=== PATIENT | female | born 1980 | race Two or more races ===

== ENCOUNTER 2021-01-26 17:20 | Inpatient (IN) | payer OTHER ==
[2021-01-26] MEDS ORDERED: ACETAMINOPHEN 1000 MG/100 ML VIAL (NON FORMULARY) IVPB ONE (18:17)
[2021-01-26] MEDS ORDERED: SODIUM CHLORIDE 1,000 ML IV STA (18:17)
[2021-01-26] MEDS ORDERED: ONDANSETRON *ODT* 4 MG TABLET SL ONE (18:17)
[2021-01-26] MEDS ORDERED: ONDANSETRON *ODT* 4 MG TABLET ONE (18:33)
[2021-01-26] MEDS ORDERED: ACETAMINOPHEN INJECTION 100 ML IVPB ONE (18:34)
[2021-01-26 19:19] LABS: BASO % 0.5 % (0-2.0); EOS % 2.4 % (0-4.5); HEMATOCRIT 38.3 % (32.4-45.2); LYMPH % 19.2 % (8-40); MCH 33.1 pg (25.7-33.7); MEAN CELL VOLUME 97.2 fl (80-96); MEAN PLT VOLUME 8.9 fl (7.5-11.1); MONO % 8.1 % (3.8-10.2); NEUT % 69.8 % (42.8-82.8); PLATELET COUNT 236 K/MM3 (134-434); RBC 3.93 M/mm3 (3.60-5.2); RDW 13.2 % (11.6-15.6)
[2021-01-26 19:29] LABS: INR 1.62 (0.83-1.09); PROTHROMBIN TIME (PATIENT) 19.3 SEC (9.7-13.0)
[2021-01-26 19:34] LABS: CALCIUM 8.4 mg/dL (8.5-10.1)
[2021-01-26 19:35] LABS: ALBUMIN 3.6 g/dl (3.4-5.0); BLOOD UREA NITROGEN 13.1 mg/dL (7-18)
[2021-01-26 19:38] LABS: CREATININE 0.8 mg/dL (0.55-1.3)
[2021-01-26 19:39] LABS: BILIRUBIN,TOTAL 0.4 mg/dL (0.2-1)
[2021-01-26 19:40] LABS: TOT PROT 7.1 g/dl (6.4-8.2)
[2021-01-26 19:44] LABS: EPI CELLS >36 /uL (0-25.1); HYALINE CASTS 2 /uL (0-3.1); URINE APPEARANCE TURBID; URINE BACTERIA 1478 /uL (0-1359); URINE BILIRUBIN NEGATIVE (NEGATIVE); URINE COLOR ORANGE; URINE GLUCOSE (UA) NEGATIVE (NEGATIVE); URINE KETONE TRACE (NEGATIVE); URINE LEUK ESTERASE 3+ (NEGATIVE); URINE NITRITE NEGATIVE (NEGATIVE); URINE PROTEIN 2+ (NEGATIVE); URINE RBC 2798 /uL (0-23.9); URINE UROBILINOGEN 0.2 mg/dL (0.2-1.0); URINE WBC 1464 /uL (0-25.8)
[2021-01-26] MEDS ORDERED: CIPROFLOXACIN 400 MG/D5W 400 MG/200 ML IVPB IVPB ONE (20:55)
[2021-01-26] MEDS ORDERED: morphine CARPU-JECT 4 MG/1 ML DISP.SYRIN IVPUSH ONE (20:56)
[2021-01-26] MEDS ORDERED: morphine SULFATE 4 MG/ML VIAL ONE (21:13)
[2021-01-26] MEDS: SODIUM CHLORIDE 1,000 ML IV SCH (23:51)
[2021-01-27] MEDS ORDERED: ACETAMINOPHEN 1000 MG/100 ML VIAL (NON FORMULARY) IVPB PRN (01:30)
[2021-01-27 03:06] VITALS: BMI 20.9
[2021-01-27] MEDS: MORPHINE SULFATE 2 MG/ML VIAL IVPUSH PRN ×2 (04:15→21:46)
[2021-01-27 08:23] LABS: BASO % 0.6 % (0-2.0); EOS % 3.3 % (0-4.5); HEMATOCRIT 34.8 % (32.4-45.2); LYMPH % 24.1 % (8-40); MCH 33.4 pg (25.7-33.7); MCHC 34.4 g/dl (32.0-36.0); MEAN CELL VOLUME 97.1 fl (80-96); MEAN PLT VOLUME 9.2 fl (7.5-11.1); MONO % 7.2 % (3.8-10.2); NEUT % 64.8 % (42.8-82.8); PLATELET COUNT 218 K/MM3 (134-434); RBC 3.58 M/mm3 (3.60-5.2); RDW 13.1 % (11.6-15.6); WHITE BLOOD COUNT 7.4 K/mm3 (4.0-10.0)
[2021-01-27 08:37] LABS: INR 1.82 (0.83-1.09)
[2021-01-27 08:55] LABS: CALCIUM 7.5 mg/dL (8.5-10.1)
[2021-01-27 08:56] LABS: BLOOD UREA NITROGEN 8.4 mg/dL (7-18)
[2021-01-27 08:57] LABS: ALBUMIN 2.9 g/dl (3.4-5.0)
[2021-01-27 08:58] LABS: PHOSPHOROUS 2.6 mg/dL (2.5-4.9)
[2021-01-27 08:59] LABS: CREATININE 0.6 mg/dL (0.55-1.3)
[2021-01-27 09:00] LABS: BILIRUBIN,TOTAL 0.5 mg/dL (0.2-1); TOT PROT 5.8 g/dl (6.4-8.2)
[2021-01-27] MEDS ORDERED: DEXTROSE 5%-WATER - 50 ML IVPB ONE (09:31)
[2021-01-27] MEDS ORDERED: cefTRIAXone SODIUM 1 GM VIAL ONE (09:31)
[2021-01-27] MEDS: SODIUM CHLORIDE 1,000 ML IV SCH (11:33)
[2021-01-27] MEDS: CEFTRIAXONE 1 GM in DEXTROSE 5%-WATER - 50 ML IVPB SCH (13:22)
[2021-01-28] MEDS: SODIUM CHLORIDE 1,000 ML IV SCH
[2021-01-28 08:16] LABS: EOS % 1.4 % (0-4.5); HEMOGLOBIN 12.3 GM/dL (10.7-15.3); MCH 33.1 pg (25.7-33.7); MCHC 34.2 g/dl (32.0-36.0); MEAN CELL VOLUME 96.8 fl (80-96); MONO % 5.2 % (3.8-10.2); NEUT % 64.4 % (42.8-82.8); PLATELET COUNT 224 K/MM3 (134-434); RBC 3.71 M/mm3 (3.60-5.2); RDW 13.3 % (11.6-15.6); WHITE BLOOD COUNT 6.6 K/mm3 (4.0-10.0)
[2021-01-28 08:34] LABS: BLOOD UREA NITROGEN 9.7 mg/dL (7-18)
[2021-01-28 08:35] LABS: CALCIUM 7.4 mg/dL (8.5-10.1); CREATININE 0.5 mg/dL (0.55-1.3); MAGNESIUM 1.9 mg/dL (1.8-2.4)
[2021-01-28 08:37] LABS: PHOSPHOROUS 2.4 mg/dL (2.5-4.9)
[2021-01-28 08:42] LABS: BILIRUBIN,TOTAL 0.5 mg/dL (0.2-1)
[2021-01-28] MEDS ORDERED: NAPH,MB-DB/K PH,MBDB POWDER PACKET PO ONE (08:47)
[2021-01-28] MEDS ORDERED: DEXTROSE 5%-WATER - 50 ML IVPB ONE (09:35)
[2021-01-28] MEDS ORDERED: cefTRIAXone SODIUM 1 GM VIAL ONE (09:35)
[2021-01-28] MEDS: CEFTRIAXONE 1 GM in DEXTROSE 5%-WATER - 50 ML IVPB SCH (10:30)
[2021-01-28] MEDS: DEXTROSE 5%-NORMAL SALINE 1,000 ML IV SCH (18:11)
[2021-01-28] MEDS: MORPHINE SULFATE 2 MG/ML VIAL IVPUSH PRN (22:50)
[2021-01-29] MEDS: DEXTROSE 5%-NORMAL SALINE 1,000 ML IV SCH ×2 (01:09→17:12)
[2021-01-29] MEDS ORDERED: DEXTROSE 50%-WATER - 25 GM/50 ML VIAL IVPUSH ONE (08:19)
[2021-01-29] MEDS ORDERED: cefTRIAXone SODIUM 1 GM VIAL ONE (09:31)
[2021-01-29] MEDS ORDERED: DEXTROSE 5%-WATER - 50 ML IVPB ONE (09:32)
[2021-01-29 10:02] LABS: EOS % 5.1 % (0-4.5); HEMATOCRIT 35.7 % (32.4-45.2); HEMOGLOBIN 12.2 GM/dL (10.7-15.3); LYMPH % 33.3 % (8-40); MCH 33.1 pg (25.7-33.7); MCHC 34.2 g/dl (32.0-36.0); MEAN CELL VOLUME 96.7 fl (80-96); MONO % 10.7 % (3.8-10.2); NEUT % 48.9 % (42.8-82.8); PLATELET COUNT 240 K/MM3 (134-434); RBC 3.69 M/mm3 (3.60-5.2); RDW 13.2 % (11.6-15.6); WHITE BLOOD COUNT 4.5 K/mm3 (4.0-10.0)
[2021-01-29] MEDS ORDERED: ACETAMINOPHEN 1000 MG/100 ML VIAL (NON FORMULARY) IVPB PRN (10:15)
[2021-01-29 10:19] LABS: CALCIUM 7.8 mg/dL (8.5-10.1)
[2021-01-29 10:20] LABS: MAGNESIUM 1.9 mg/dL (1.8-2.4)
[2021-01-29 10:22] LABS: CREATININE 0.6 mg/dL (0.55-1.3)
[2021-01-29 10:23] LABS: BILIRUBIN,TOTAL 0.4 mg/dL (0.2-1)
[2021-01-29 10:26] LABS: TOT PROT 5.8 g/dl (6.4-8.2)
[2021-01-29] MEDS: CEFTRIAXONE 1 GM in DEXTROSE 5%-WATER - 50 ML IVPB SCH (11:03)
[2021-01-29] MEDS: NAPH,MB-DB/K PH,MBDB POWDER PACKET PO SCH ×2 (17:12→21:13)
[2021-01-30] MEDS: DEXTROSE 5%-NORMAL SALINE 1,000 ML IV SCH ×3 (05:52→21:13)
[2021-01-30] MEDS ORDERED: DEXTROSE 5%-WATER - 50 ML IVPB ONE (08:50)
[2021-01-30] MEDS ORDERED: cefTRIAXone SODIUM 1 GM VIAL ONE (08:50)
[2021-01-30] MEDS: CEFTRIAXONE 1 GM in DEXTROSE 5%-WATER - 50 ML IVPB SCH (09:03)
[2021-01-30] MEDS: ONDANSETRON 4 MG/2 ML VIAL IVPUSH PRN ×2 (09:04→21:09)
[2021-01-30 09:09] LABS: BASO % 1.8 % (0-2.0); EOS % 4.3 % (0-4.5); HEMATOCRIT 36.2 % (32.4-45.2); HEMOGLOBIN 12.6 GM/dL (10.7-15.3); LYMPH % 38.3 % (8-40); MCH 33.1 pg (25.7-33.7); MCHC 34.9 g/dl (32.0-36.0); MEAN CELL VOLUME 94.9 fl (80-96); MEAN PLT VOLUME 8.4 fl (7.5-11.1); MONO % 10.1 % (3.8-10.2); NEUT % 45.5 % (42.8-82.8); PLATELET COUNT 260 K/MM3 (134-434); RBC 3.81 M/mm3 (3.60-5.2); RDW 12.9 % (11.6-15.6); WHITE BLOOD COUNT 4.7 K/mm3 (4.0-10.0)
[2021-01-30 09:32] LABS: CALCIUM 8.2 mg/dL (8.5-10.1)
[2021-01-30 09:33] LABS: ALBUMIN 3.2 g/dl (3.4-5.0); BLOOD UREA NITROGEN 3.1 mg/dL (7-18); MAGNESIUM 1.8 mg/dL (1.8-2.4)
[2021-01-30 09:35] LABS: CREATININE 0.7 mg/dL (0.55-1.3)
[2021-01-30 09:36] LABS: PHOSPHOROUS 2.8 mg/dL (2.5-4.9)
[2021-01-30 09:37] LABS: BILIRUBIN,TOTAL 0.5 mg/dL (0.2-1); TOT PROT 6.4 g/dl (6.4-8.2)
[2021-01-31 09:00] LABS: BASO % 1.2 % (0-2.0); HEMATOCRIT 34.9 % (32.4-45.2); HEMOGLOBIN 12.3 GM/dL (10.7-15.3); LYMPH % 43.8 % (8-40); MCH 33.7 pg (25.7-33.7); MCHC 35.2 g/dl (32.0-36.0); MEAN CELL VOLUME 95.7 fl (80-96); MEAN PLT VOLUME 8.8 fl (7.5-11.1); MONO % 9.1 % (3.8-10.2); NEUT % 41.9 % (42.8-82.8); PLATELET COUNT 239 K/MM3 (134-434); RBC 3.65 M/mm3 (3.60-5.2); WHITE BLOOD COUNT 4.8 K/mm3 (4.0-10.0)
[2021-01-31 09:16] LABS: CHLORIDE 110 mmol/L (98-107); SODIUM 141 mmol/L (136-145)
[2021-01-31] MEDS ORDERED: DEXTROSE 5%-WATER - 50 ML IVPB ONE (09:25)
[2021-01-31] MEDS ORDERED: cefTRIAXone SODIUM 1 GM VIAL ONE (09:25)
[2021-01-31] MEDS: CEFTRIAXONE 1 GM in DEXTROSE 5%-WATER - 50 ML IVPB SCH (09:31)
[2021-01-31 09:32] LABS: CALCIUM 7.9 mg/dL (8.5-10.1)
[2021-01-31 09:33] LABS: GLUCOSE,RANDOM 91 mg/dL (74-106); MAGNESIUM 1.8 mg/dL (1.8-2.4)
[2021-01-31 09:36] LABS: ANION GAP 4 MMOL/L (8-16); CO2 27 mmol/L (21-32); CREATININE 0.7 mg/dL (0.55-1.3); PHOSPHOROUS 2.5 mg/dL (2.5-4.9)
[2021-01-31 09:38] LABS: BLOOD UREA NITROGEN 2.8 mg/dL (7-18)
[2021-01-31] MEDS ORDERED: PANTOPRAZOLE 40 MG TABLET PO SCH (10:00)
[2021-01-31] MEDS ORDERED: DOCUSATE SODIUM 100 MG CAPSULE (FP) PO SCH (10:00)
[2021-01-31 14:33] VITALS: BP 104/52; PULSE 72; TEMP 98.8
== END 2021-01-31 14:39 | disposition home or self-care (01) | DRG 392 ==
LOC: JER 17:20 → JERBED 21:00 → J5S 23:46
PROVIDERS: ADMIT Hospitalist; ATTEND Internal Medicine
DX: K57.92 Diverticulitis of intestine, part unspecified, without perforation or abscess without bleeding (principal); D68.2 Hereditary deficiency of other clotting factors; N20.2 Calculus of kidney with calculus of ureter; N39.0 Urinary tract infection, site not specified; E16.2 Hypoglycemia, unspecified; R10.32 Left lower quadrant pain
CPT/HCPCS: 36415; 74176-TC; 80048; 80053; 81003; 82962; 83735; 84100; 84703; 85025; 85610; 85730; 86140; 87040; 87077; 87086; 93005; 93010; 99285-25; C9803; J0131; Q0162; U0003; U0005

== ENCOUNTER 2024-11-20 17:39 | Inpatient (IN) | payer OTHER ==
[2024-11-20] MEDS ORDERED: ACETAMINOPHEN INJECTION 100 ML ONE (18:16)
[2024-11-20] MEDS ORDERED: MAG HYDROX/AL HYDROX/SIMETH 30 ML UNIT-DOSE CUP ONE (18:16)
[2024-11-20] MEDS: SODIUM CHLORIDE 0.9% 500 ML INFUS.BAG IV ONE (18:18)
[2024-11-20] MEDS: ACETAMINOPHEN 1000 MG/100 ML BAG IVPB ONE (18:19)
[2024-11-20 18:21] LABS: HEMATOCRIT 40.2 % (32.4-45.2); HEMOGLOBIN 14.1 G/dL (10.7-15.3); MCH 33.7 pg (25.7-33.7); MEAN CELL VOLUME 96.4 fl (80-96); MEAN PLT VOLUME 8.4 fl (7.5-11.1); PLATELET COUNT 226.4 10^3/uL (134-434); RBC 4.17 10^6/uL (3.60-5.2); RDW 13.3 % (11.6-15.6)
[2024-11-20 18:26] LABS: HCG,QUALITATIVE URINE Negative
[2024-11-20 18:32] LABS: INR 1.61 (0.83-1.09); PROTHROMBIN TIME (PATIENT) 18.1 SEC (9.7-13.0)
[2024-11-20 18:36] LABS: EPITHELIAL CELLS 21-50 /hpf
[2024-11-20 18:53] LABS: ALBUMIN 4.3 g/dl (3.4-5.0); BILIRUBIN,TOTAL 0.6 mg/dl (0.2-1); CALCIUM 8.9 mg/dl (8.5-10.1); CREATININE 0.6 mg/dl (0.6-1.3); MAGNESIUM 2.2 mg/dL (1.8-2.4); PHOSPHOROUS 2.3 (2.5-4.9); POTASSIUM 3.9 mmol/L (3.5-5.1); TOT PROT 7.1 g/dl (6.4-8.2)
[2024-11-20] MEDS: MAG HYDROX/AL HYDROX/SIMETH 30 ML UNIT-DOSE CUP PO ONE (19:10)
[2024-11-20] MEDS ORDERED: PIPERACILLIN/TAZOBACTAM 3.375 GM VIAL IVPB ONE (20:58)
[2024-11-20] MEDS: PIPERACILLIN/TAZOB 3.375 GM 3.375 GM in DEXTROSE 5%-WATER - 50 ML IVPB ONE (21:06)
[2024-11-20] MEDS ORDERED: morphine SULFATE 4 MG/ML VIAL ONE (21:07)
[2024-11-20] MEDS: morphine CARPU-JECT 4 MG/1 ML DISP.SYRIN IVPUSH ONE (21:10)
[2024-11-20] MEDS: PIPERACILLIN/TAZOB 3.375 GM 3.375 GM in DEXTROSE 5%-WATER - 50 ML IVPB SCH (23:27)
[2024-11-20] MEDS: D5-1/2NS+20 MEQ KCL - 20 MEQ/1,000 ML INFUS.BAG IV SCH (23:33)
[2024-11-20] MEDS: HYDROmorphone HCl 2 MG/ML VIAL IVPB PRN (23:44)
[2024-11-21 00:06] VITALS: BMI 25.0
[2024-11-21] MEDS: PIPERACILLIN/TAZOB 3.375 GM 3.375 GM in DEXTROSE 5%-WATER - 50 ML IVPB SCH (01:36)
[2024-11-21 02:14] VITALS: RESP 18
[2024-11-21 08:53] LABS: ALBUMIN 3.6 g/dl (3.4-5.0); BILIRUBIN,TOTAL 0.6 mg/dl (0.2-1); CALCIUM 8.1 mg/dl (8.5-10.1); CREATININE 0.6 mg/dl (0.6-1.3)
[2024-11-21] MEDS: ACETAMINOPHEN 325 MG TABLET (FP) PO PRN (09:38)
[2024-11-21 09:50] LABS: BASO % 0.3 % (0-2.0); EOS % 0.5 % (0-4.5); HEMATOCRIT 36.1 % (32.4-45.2); HEMOGLOBIN 12.2 GM/dL (10.7-15.3); LYMPH % 7.2 % (8-40); MCH 31.9 pg (25.7-33.7); MCHC 33.8 g/dl (32.0-36.0); MEAN CELL VOLUME 94.4 fl (80-96); MEAN PLT VOLUME 8.4 fl (7.5-11.1); MONO % 6.2 % (3.8-10.2); NEUT % 85.8 % (42.8-82.8); PLATELET COUNT 247 10^3/uL (134-434); RBC 3.83 M/mm3 (3.60-5.2); RDW 13.4 % (11.6-15.6); WHITE BLOOD COUNT 12.5 K/mm3 (4.0-10.0)
[2024-11-21] MEDS: POLYETHYLENE GLYCOL (HEALTHYLAX) 3350 17 GM PACKET PO SCH (15:19)
[2024-11-22 09:42] LABS: BASO % 0.6 % (0-2.0); EOS % 3.6 % (0-4.5); HEMATOCRIT 37.2 % (32.4-45.2); HEMOGLOBIN 12.8 GM/dL (10.7-15.3); LYMPH % 21.4 % (8-40); MCH 32.8 pg (25.7-33.7); MCHC 34.5 g/dl (32.0-36.0); MEAN CELL VOLUME 94.8 fl (80-96); MEAN PLT VOLUME 7.9 fl (7.5-11.1); MONO % 9.7 % (3.8-10.2); NEUT % 64.7 % (42.8-82.8); PLATELET COUNT 274 10^3/uL (134-434); RBC 3.92 M/mm3 (3.60-5.2); RDW 13.3 % (11.6-15.6); WHITE BLOOD COUNT 5.1 K/mm3 (4.0-10.0)
[2024-11-22 10:10] LABS: ALBUMIN 2.9 g/dl (3.4-5.0); CREATININE 0.7 mg/dL (0.55-1.3)
[2024-11-22 10:11] LABS: BILIRUBIN,TOTAL 0.3 mg/dL (0.2-1)
[2024-11-22 10:12] LABS: TOT PROT 6.5 g/dl (6.4-8.2)
[2024-11-22 11:04] LABS: CALCIUM 8.6 mg/dL (8.5-10.1)
[2024-11-22] MEDS: PANTOPRAZOLE 40 MG TABLET PO SCH (15:21)
[2024-11-22] MEDS: ONDANSETRON *ODT* 4 MG TABLET SL PRN (15:21)
[2024-11-23] MEDS: PIPERACILLIN/TAZOB 3.375 GM 50 ML IVPB SCH (02:05)
[2024-11-23 10:28] LABS: BASO % 0.6 % (0-2.0); EOS % 1.9 % (0-4.5); HEMATOCRIT 36.8 % (32.4-45.2); HEMOGLOBIN 12.7 GM/dL (10.7-15.3); LYMPH % 19.9 % (8-40); MCH 32.7 pg (25.7-33.7); MCHC 34.6 g/dl (32.0-36.0); MEAN CELL VOLUME 94.4 fl (80-96); MEAN PLT VOLUME 7.8 fl (7.5-11.1); MONO % 9.4 % (3.8-10.2); NEUT % 68.2 % (42.8-82.8); PLATELET COUNT 316 10^3/uL (134-434); RDW 13.4 % (11.6-15.6); WHITE BLOOD COUNT 5.9 K/mm3 (4.0-10.0)
[2024-11-23 11:44] LABS: ALBUMIN 3.2 g/dl (3.4-5.0); BILIRUBIN,TOTAL 0.3 mg/dL (0.2-1); BLOOD UREA NITROGEN 3.9 mg/dL (7-18); CALCIUM 8.6 mg/dL (8.5-10.1); CREATININE 0.7 mg/dL (0.55-1.3); POTASSIUM 4.1 mmol/L (3.5-5.1); TOT PROT 6.7 g/dl (6.4-8.2)
[2024-11-24 09:10] LABS: HEMATOCRIT 37.1 % (32.4-45.2); HEMOGLOBIN 12.5 GM/dL (10.7-15.3); MCH 32.2 pg (25.7-33.7); MCHC 33.6 g/dl (32.0-36.0); MEAN CELL VOLUME 95.7 fl (80-96); MEAN PLT VOLUME 7.6 fl (7.5-11.1); PLATELET COUNT 329 10^3/uL (134-434); RBC 3.87 M/mm3 (3.60-5.2); RDW 13.5 % (11.6-15.6); WHITE BLOOD COUNT 4.8 K/mm3 (4.0-10.0)
[2024-11-24 10:17] LABS: BASO % 1.1 % (0-2.0); EOS % 3.5 % (0-4.5); LYMPH % 33.7 % (8-40); MONO % 9.2 % (3.8-10.2); NEUT % 52.5 % (42.8-82.8)
[2024-11-24 11:10] LABS: ALBUMIN 2.9 g/dl (3.4-5.0); BILIRUBIN,TOTAL 0.2 mg/dL (0.2-1); BLOOD UREA NITROGEN 3.6 mg/dL (7-18); CALCIUM 8.7 mg/dL (8.5-10.1); CREATININE 0.7 mg/dL (0.55-1.3); POTASSIUM 4.2 mmol/L (3.5-5.1); TOT PROT 6.4 g/dl (6.4-8.2)
[2024-11-24 13:30] VITALS: BP 106/79; PULSE 84; TEMP 99
== END 2024-11-24 17:00 | disposition home or self-care (01) | DRG 392 ==
LOC: FER 17:39 → FM/S 22:24 → OBSVTOIN 22:39 → FM/S 22:55 → UNDOADMOB 22:55 → J6S 11-21 15:57
PROVIDERS: ADMIT Family Medicine; ATTEND Family Medicine
DX: K57.92 Diverticulitis of intestine, part unspecified, without perforation or abscess without bleeding (principal); D68.2 Hereditary deficiency of other clotting factors; K83.8 Other specified diseases of biliary tract
CPT/HCPCS: 0241U-QW; 36415; 74177-TC; 74183-TC; 80053; 81003; 81015; 83690; 83735; 84100; 84479; 84703; 85025; 85027; 85610; 85730; 86140; 86850; 86900; 86901; 87086; 99285-25; G0378; J0131; Q0162; Q9967